=== PATIENT | male | born 1965 | race Caucasian/White ===

== ENCOUNTER 2017-09-16 19:14 | Emergency (ER) | payer BC ==
[2017-09-16] MEDS ORDERED: HYDROcodone/Acetaminophen 5/325 mg Tablet ONE (19:59)
[2017-09-16] MEDS ORDERED: Ibuprofen 800 MG TAB ONE (20:00)
--- NOTE | 2017-09-16 20:43 | RAD ---
SINGLE VIEW OF THE CHEST AND LEFT RIB SERIES: 09/16/17 COMPARISON: None. HISTORY: Injury to the left chest with left chest wall pain. FINDINGS: Single view of the chest and multiple views of the left ribs were performed. There is normal sized ca rdiomediastinal silhouette. There is no evidence of consolidation, mass or pleural effusion. No displaced rib fractures are identified. No underlying pneumothorax or pleural thickening are seen. IMPRESSION: 1. No evidence of displaced left rib fracture. 2. No evidence of acute cardiopulmonary disease. POS: [facility]
== END 2017-09-16 20:15 | disposition home or self-care (01) ==
LOC: MADERS 19:14
DX: S20.219A Contusion of unspecified front wall of thorax, initial encounter (principal); I73.9 Peripheral vascular disease, unspecified; F17.210 Nicotine dependence, cigarettes, uncomplicated; W18.30XA Fall on same level, unspecified, initial encounter